=== PATIENT | male | born 1985 | race Caucasian/White ===

== ENCOUNTER 2019-10-11 18:26 | Emergency (ER) | payer SELFPAY ==
[2019-10-11 19:22] LABS: Bilirubin Large (Negative); Blood, Urine Large (Negative); Glucose, Urine (Dipstick) 100 mg/dL (Negative); Leukocyte Large (Negative); Nitrite Negative (Negative); Protein, Urine (Dipstick) > or equal to 300 mg/dL (Neg-Trace); Urobilinogen > or = 8.0 mg/dL (Less than 2)
[2019-10-11 19:25] LABS: Clarity Cloudy (Clear)
[2019-10-11 19:32] LABS: RBC/HPF Greater than 50 HPF (0-3)
[2019-10-11 19:33] LABS: Bacteria/HPF Rare-Few HPF (None Seen); Mucous/LPF 2+ LPF (<2+); Squamous Epithelial 0-3 HPF (0-3)
[2019-10-11 19:36] LABS: #Basophils 0.1 thou/uL (0.0-0.2); #Eosinphils 0.2 thou/uL (0.0-0.7); #Lymphocytes 1.2 thou/uL (1.20-3.40); #Monocytes 1.9 thou/uL (0.11-0.59); #Neutrophils 12.3 thou/uL (1.40-6.50); %Basophils 0.8 % (0.0-1.0); %Eosinophils 1.2 % (0.0-10.0); %Lymphocytes 7.4 % (21.0-51.0); %Monocytes 12.3 % (0.0-10.0); %Neutrophils 78.3 % (42.0-75.0); Hemoglobin 16.7 g/dL (14.0-18.0); Mean Corpuscular HGB CONC 32.6 g/dL (32.0-36.0); Mean Corpuscular Hemoglobin 30.3 pg (27.0-31.0); Mean Platelet Volume 8.1 fL (7.4-10.4); Platelet Count 229 thou/uL (130-400); RBC Distribution Width 12.1 % (11.5-14.5); Red Blood Cell (RBC) Count 5.52 mill/uL (4.70-6.10); White Blood Cell (WBC) Count 15.7 thou/uL (4.8-10.8)
[2019-10-11] MEDS ORDERED: Sodium Chloride 0.9% 1,000 ML ONE ×2 (19:36→22:08)
[2019-10-11 19:51] LABS: ALT (SGPT) 18 U/L (8-55); AST (SGOT) 12 U/L (5-34); Albumin 4.2 g/dL (3.5-5.0); Alkaline Phosphatase 76 U/L (40-110); Anion Gap 16 mmol/L (10-20); BUN (Urea Nitrogen) 18 mg/dL (8.9-20.6); Bilirubin, Total 0.8 mg/dL (0.2-1.2); Calc. Creatinine Clearance 0 mL/min (70-130); Calcium 10.3 mg/dL (7.8-10.44); Carbon Dioxide 26 mmol/L (22-29); Chloride 102 mmol/L (98-107); Estimated GFR-MDRD 61; Globulin 2.8 g/dL (2.4-3.5); Glucose 122 mg/dL (70-105); Potassium 4.2 mmol/L (3.5-5.1); Sodium 140 mmol/L (136-145)
--- NOTE | 2019-10-11 21:29 | CT ---
CT ABDOMEN NONCONTRAST CT PELVIS NONCONTRAST: (Urolithiasis protocol) DATE: 10/11/2019 HISTORY: 33-year-old male with right flank pain COMPARISON: None TECHNIQUE: IV injection of iodinated contrast media: None Oral contrast media: None FINDINGS: Other than for urolithiasis, the lack of IV and oral contrast limits the evaluation. Bilateral kidneys are diffusely very enlarged, and the parenchyma is almost completely replaced by an extremely large number of cysts. Many of the cysts are hyperdense, consistent with hemorrhagic cysts. Furthermore, there is fat stranding around the right kidney. Right renal lower pole hyperdense materi al is irregularly-shaped, suggesting possible acute hemorrhage. Furthermore, the right renal collecting system is mildly to moderately dilated. Left renal collecting system is mildly dilated. There is also a very large approximately 8.7 x 7.2 x 8.2 cm exophytic pedunculated cyst protruding inferiorly from the left renal lower pole. There is a punctate 2 mm calc ification in the left kidney medially at the lower pole. There are multiple small hepatic cysts. No definite calculus is identified in the ureters. No calculus in bladder. Gas-filled normal appendix is visualized. No small bowel dilation. Difficult to evaluate for colonic diverticulitis because of lack of visceral fat. No small bowel dilation. Lung bases are grossly clear. IMPRESSION: 1) autosomal dominant polycystic kidney disease. 2) bilateral kidneys are very enlarged, and have a very large number of cysts, many of them hemorrhag ic. 3) evidence for acute hemorrhage in the lower pole of the right renal parenchyma, with significant ri ght perirenal edema.
[2019-10-11] MEDS ORDERED: Ciprofloxacin Lactate/D5W 400 mg/200 ml Premix ONE (22:31)
== END 2019-10-11 22:41 | disposition short-term general hospital (02) ==
LOC: MADERS 18:26
DX: N39.0 Urinary tract infection, site not specified (principal); Q61.3 Polycystic kidney, unspecified; I10 Essential (primary) hypertension; F90.9 Attention-deficit hyperactivity disorder, unspecified type; F17.210 Nicotine dependence, cigarettes, uncomplicated; Z79.899 Other long term (current) drug therapy
CPT/HCPCS: 74176; 80053; 81003; 81015; 85025; 87086; 94760; 96361; 96374; J0744; J7050